=== PATIENT | male | born 1955 | race Caucasian/White ===

== ENCOUNTER 2016-06-07 03:07 | Emergency (ER) | payer OTHER ==
[~2016-06-07] VITALS: Ht 193 cm; Wt 100.0 kg
[2016-06-07] MEDS ORDERED: SODIUM CHLORIDE 0.9% 1,000ML IVBOLUS ONE ×2 (03:30→04:30)
[2016-06-07] MEDS ORDERED: ONDANSETRON 2MG/ML, 2ML IVPush ONE (03:30)
[2016-06-07] MEDS ORDERED: SODIUM CHLORIDE FLUSH 10ML SYR IVF ONE (03:30)
[2016-06-07] MEDS ORDERED: ONDANSETRON 2MG/ML, 2ML ONE (03:36)
[2016-06-07 03:53] LABS: ASPARTATE AMINO TRANSFERASE 25 U/L (15-37); BLOOD UREA NITROGEN 32 mg/dL (7-18)
[2016-06-07] MEDS ORDERED: KETOROLAC 30 MG/1 ML IVPush ONE (04:30)
[2016-06-07] MEDS ORDERED: KETOROLAC 30 MG/1 ML ONE (04:33)
[2016-06-07 05:35] VITALS: BP 110/68
== END 2016-06-07 05:52 | disposition home or self-care (01) ==
LOC: ED 03:58
DX: A08.4 Viral intestinal infection, unspecified (principal)
CPT/HCPCS: 36415; 80053; 83690; 85025; 93005; 96361; 96374; 96375; 99285; J1885; J2405; J7030